=== PATIENT | female | born 1955 | race Caucasian/White ===

== ENCOUNTER 2017-07-16 08:44 | Outpatient (CLI) | payer OTHER | END 2017-07-16 17:00 | disposition home or self-care (01) | LOC: RX STUDY 08:44 | DX: R19.5 Other fecal abnormalities (principal) ==

== ENCOUNTER 2024-10-22 21:24 | Emergency (ER) | payer OTHER ==
[~2024-10-22] VITALS: Ht 154.9 cm; Wt 77.1 kg
[2024-10-22] MEDS ORDERED: SYMBICORT 16010.2 GM IH (21:54)
[2024-10-22] MEDS ORDERED: ALBUTEROL1.25 MG/3 IH (21:54)
[2024-10-22] MEDS ORDERED: TELMISARTAN20 MG PO (21:55)
[2024-10-22] MEDS ORDERED: SINGULAIR10 MG PO (21:55)
== END 2024-10-22 22:49 | disposition home or self-care (01) ==
LOC: ER 22:24
DX: R21 Rash and other nonspecific skin eruption (principal); L50.8 Other urticaria

== ENCOUNTER 2024-10-25 16:00 | Emergency (ER) | payer OTHER ==
[~2024-10-25] VITALS: Ht 152.4 cm; Wt 77.1 kg
[~2024-10-25 16:00] MED LIST: ALBUTEROL1.25 MG/3 IH; SINGULAIR10 MG PO; SYMBICORT 16010.2 GM IH; TELMISARTAN20 MG PO
== END 2024-10-25 17:43 | disposition home or self-care (01) ==
LOC: ER 16:00
DX: B35.6 Tinea cruris (principal); B35.4 Tinea corporis